=== PATIENT | female | born 1990 | race Caucasian/White ===

== ENCOUNTER 2018-08-28 13:38 | Emergency (ER) | payer MEDICAID ==
[~2018-08-28] VITALS: Ht 162.6 cm; Wt 69.4 kg
[2018-08-28 13:45] VITALS: Ht 162.6 cm; Wt 69.4 kg
[2018-08-28 14:45] LABS: BASOPHIL % 0.1 % (0-2); PLATELET COUNT 261 x10^3mcL (130-400); RED CELL DISTRIBUTION WIDTH 12.1 % (11.5-14.5)
[2018-08-28 14:51] LABS: CALCIUM 9.3 mg/dL (8.5-10.1); CARBON DIOXIDE 32.1 mmol/L (21-32); CHLORIDE SERUM 103 mmol/L (98-107); CREATININE SERUM 0.7 mg/dL (0.6-1.0); GFR1 > 60 mL/min; GLUCOSE SERUM 94 mg/dL (74-106); POTASSIUM SERUM 4.1 mmol/L (3.5-5.1); SODIUM SERUM 140 mmol/L (136-145)
[2018-08-28 14:56] LABS: ALKALINE PHOSPHATASE 73 U/L (46-116); ALT/SGPT 17 U/L (14-59); AST/SGOT 23 U/L (15-37); BILIRUBIN TOTAL 0.42 mg/dL (0.20-1.00); LIPASE 123 IU/L (73-393); TOTAL PROTEIN, SERUM 7.9 g/dL (6.4-8.2)
[2018-08-28 16:20] VITALS: BP 126/48
== END 2018-08-28 16:48 | disposition home or self-care (01) ==
LOC: ED 13:38
PROVIDERS: Emergency Medicine
DX: F11.23 Opioid dependence with withdrawal (principal); R10.13 Epigastric pain; Z90.89 Acquired absence of other organs; Z90.710 Acquired absence of both cervix and uterus
CPT/HCPCS: J1885; J2405; J7030; Q9967

== ENCOUNTER 2018-08-29 10:59 | Emergency (ER) | payer MEDICAID ==
[~2018-08-29] VITALS: Ht 157.5 cm; Wt 73.0 kg
[2018-08-29 11:22] VITALS: Ht 157.5 cm; Wt 73.0 kg
[2018-08-29 12:15] LABS: BASOPHIL % 0.3 % (0-2); PLATELET COUNT 245 x10^3mcL (130-400); RED CELL DISTRIBUTION WIDTH 12.1 % (11.5-14.5)
[2018-08-29 12:33] LABS: CALCIUM 8.6 mg/dL (8.5-10.1); CARBON DIOXIDE 30.5 mmol/L (21-32); CHLORIDE SERUM 105 mmol/L (98-107); CREATININE SERUM 0.7 mg/dL (0.6-1.0); GFR1 > 60 mL/min; GLUCOSE SERUM 104 mg/dL (74-106); POTASSIUM SERUM 3.9 mmol/L (3.5-5.1); SODIUM SERUM 139 mmol/L (136-145)
[2018-08-29 12:37] LABS: ALBUMIN 3.5 g/dL (3.4-5.0); ALKALINE PHOSPHATASE 61 U/L (46-116); ALT/SGPT 15 U/L (14-59); AST/SGOT 14 U/L (15-37); BILIRUBIN TOTAL 0.37 mg/dL (0.20-1.00); TOTAL PROTEIN, SERUM 6.8 g/dL (6.4-8.2)
[2018-08-29 13:02] VITALS: BP 110/80
== END 2018-08-29 13:02 | disposition home or self-care (01) ==
LOC: ED 10:59
PROVIDERS: Emergency Medicine
DX: F11.23 Opioid dependence with withdrawal (principal); R11.2 Nausea with vomiting, unspecified; T40.0X5A Adverse effect of opium, initial encounter; Y92.89 Other specified places as the place of occurrence of the external cause; Z88.0 Allergy status to penicillin
CPT/HCPCS: J2765

== ENCOUNTER 2018-08-31 19:39 | Emergency (ER) | payer MEDICAID ==
[~2018-08-31] VITALS: Ht 157.5 cm; Wt 68.0 kg
[2018-08-31 20:07] VITALS: Ht 157.5 cm; Wt 68.0 kg
[2018-08-31 22:23] VITALS: BP 141/78
== END 2018-08-31 22:23 | disposition home or self-care (01) ==
LOC: ED 19:39
DX: F11.23 Opioid dependence with withdrawal (principal); G44.209 Tension-type headache, unspecified, not intractable; Z88.0 Allergy status to penicillin; Z90.710 Acquired absence of both cervix and uterus
CPT/HCPCS: J1885; J2765

== ENCOUNTER 2018-12-19 14:07 | Emergency (ER) | payer MEDICAID ==
[~2018-12-19] VITALS: Ht 157.5 cm; Wt 73.5 kg
[2018-12-19 14:10] VITALS: BP 127/76
== END 2018-12-19 15:49 | disposition home or self-care (01) ==
LOC: ED 14:07
DX: T24.221A Burn of second degree of right knee, initial encounter (principal); Z88.0 Allergy status to penicillin; Z90.710 Acquired absence of both cervix and uterus; X19.XXXA Contact with other heat and hot substances, initial encounter; Y93.89 Activity, other specified; Y92.89 Other specified places as the place of occurrence of the external cause; Y99.8 Other external cause status

== ENCOUNTER 2019-01-09 17:40 | Emergency (ER) | payer MEDICAID ==
[~2019-01-09] VITALS: Ht 157.5 cm; Wt 74.4 kg
[2019-01-09 17:44] VITALS: BP 102/63; Ht 157.5 cm; Wt 74.4 kg
== END 2019-01-09 18:37 | disposition home or self-care (01) ==
LOC: ED 17:40
DX: B34.9 Viral infection, unspecified (principal); Z88.0 Allergy status to penicillin; Z90.710 Acquired absence of both cervix and uterus

== ENCOUNTER 2019-12-10 05:25 | Emergency (ER) | payer MEDICAID ==
[~2019-12-10] VITALS: Ht 157.5 cm; Wt 63.5 kg
[2019-12-10 05:26] VITALS: Ht 157.5 cm; Wt 63.5 kg
[2019-12-10 07:51] VITALS: BP 128/76
== END 2019-12-10 07:51 | disposition home or self-care (01) ==
LOC: ED 05:25
DX: S01.311A Laceration without foreign body of right ear, initial encounter (principal); F12.10 Cannabis abuse, uncomplicated; Z90.710 Acquired absence of both cervix and uterus; Z88.0 Allergy status to penicillin; Z71.6 Tobacco abuse counseling; Y04.8XXA Assault by other bodily force, initial encounter; Y93.89 Activity, other specified; Y92.89 Other specified places as the place of occurrence of the external cause; Y99.8 Other external cause status
CPT/HCPCS: 99406; J2001